=== PATIENT | female | born 1960 | race Caucasian/White ===

== ENCOUNTER 2016-09-03 14:21 | Emergency (ER) | payer MEDICAID ==
[~2016-09-03] VITALS: Ht 162.6 cm; Wt 65.6 kg
[~2016-09-03 14:21] MED LIST: AZIT250T94 PO; D-ME473S18 PO; IBUP-1542 PO
[2016-09-03 14:38] VITALS: Ht 162.6 cm; Wt 65.6 kg
[2016-09-03] MEDS ORDERED: NAPR-260 PO (15:32)
[2016-09-03] MEDS ORDERED: CETI10CA PO (15:32)
[2016-09-03] MEDS ORDERED: D-ME473S18 PO (15:32)
[2016-09-03] MEDS ORDERED: AZIT250T94 PO (15:32)
--- NOTE | 2016-09-03 15:41 | ERD ---
ER Documentation Chief Complaint Date/Time DATE: 09/03/16 TIME: 15:38 Chief Complaint COUGH & SORE THROAT X3 DAYS HPI This a 56-year-old female who presents to the emergency department today complaining of cough, sore throat, body aches and headache for the past 3 days. States she has taken ibuprofen and Robitussin with no improvement in symptoms. States she is primarily concerned about the cough. States that she was seen here in the past and the medication she was given had helped her. ROS All systems reviewed and are negative except as per history of present illness. Medications Home Meds Active Scripts Azithromycin* (Zithromax*) 250 Mg Tablet, 250 MG PO .ClintPATRIXIE DIRECTED, #6 TAB TAKE 500 MG (2 TABS) THE FIRST DAY THEN 250 MG (1 TAB) DAYS 2-5 Prov:NOHEMY ONEILL PA-C 09/03/16 Cetirizine Hcl* (Zyrtec*) 10 Mg Capsule, 10 MG PO DAILY, #14 TAB.CHEW Prov:NOHEMY ONEILL PA-C 09/03/16 Naproxen* (Naprosyn*) 500 Mg Tablet, 500 MG PO BID Y for PAIN AND/OR INFLAMMATION, #30 TAB Prov:NOHEMY ONEILL PA-C 09/03/16 Dextromethorphan Hb-Promethazine Hcl (Promethazine DM Syrup) 473 Ml Syrup, 5 ML PO Q6H Y for COUGH, #4 OZ Prov:NOHEMY ONEILL PA-C 09/03/16 Azithromycin* (Zithromax*) 250 Mg Tablet, 250 MG PO .ZPATRXIIE DIRECTED, #6 TAB TAKE 500 MG (2 TABS) THE FIRST DAY THEN 250 MG (1 TAB) DAYS 2-5 Prov:RANJEET SHORT MD 05/19/16 Ibuprofen* (Motrin*) 600 Mg Tab, 600 MG PO Q6, #30 TAB Prov:RANJEET SHORT MD 05/19/16 Dextromethorphan Hb-Promethazine Hcl (Promethazine DM Syrup) 473 Ml Syrup, 5 ML PO Q6H Y for COUGH, #4 OZ Prov:RANJEET SHORT MD 05/19/16 Azithromycin* (Zithromax*) 250 Mg Tablet, 250 MG PO .ZPACK DIRECTED, #6 TAB TAKE 500 MG (2 TABS) THE FIRST DAY THEN 250 MG (1 TAB) DAYS 2-5 Prov:RANJEET SHORT MD 05/19/16 Allergies Allergies: Coded Allergies: No Known Allergy (Unverified , 05/19/16) PMhx/Soc History of Surgery: No Anesthesia Reaction: No Hx Neurological Disorder: No Hx Respiratory Disorders: No Hx Cardiac Disorders: No Hx Psychiatric Problems: No Hx Miscellaneous Medical Probl: Yes (HTN) Hx Alcohol Use: No Hx Substance Use: No Hx Tobacco Use: No Physical Exam Vitals Vital Signs Date Time Temp Pulse Resp B/P Pulse Ox O2 Delivery O2 Flow Rate FiO2 09/03/16 14:38 99.7 94 16 141/71 99 Physical Exam Const: No acute distress Head: Atraumatic Eyes: Normal Conjunctiva ENT: Ears TMs normal. Nose no drainage. Throat with mild erythema and drainage posterior pharynx. No exudate. Neck: Full range of motion..~ No meningismus. Resp: Clear to auscultation bilaterally. No absent breath sounds. No wheezing. Cardio: Regular rate and rhythm, no murmurs Abd: Soft, non tender, non distended. Normal bowel sounds Skin: No petechiae or rashes Neur: Awake and alert Psych: Normal Mood and Affect Procedures/MDM This a 56-year-old female who presents to the emergency department today with URI and influenza-like symptoms. Patient was seen in the [facility] area of the emergency department. She is afebrile here in the emergency department. Her oxygen saturation is 99%. I do not feel the patient requires laboratory workup or imaging at this time. Patient was seen in May of last year and was treated for bronchitis. Patient indicated that that medication should be given that helped her. Given the patient's age and medical history I will give her a prescription for azithromycin to treat possible bronchitis. I do have low suspicion for pneumonia at this time. Patient may also have flulike symptoms as well, however given the duration of symptoms I do not feel that she would benefit from Tamiflu at this time. Patient was given a prescription for Zyrtec as well as Naprosyn and promethazine. I have low suspicion for strep pharyngitis, peritonsillar abscess, retropharyngeal abscess, otitis media, sinusitis, abscess, meningitis, sepsis, or other acute infectious bacterial process. At this time the patient is stable for discharge and outpatient management. They should follow up with their PCP in the next 1-2. They may return to the emergency department sooner if symptoms persist or worsen. Patient understood and agreed with the plan. Departure Diagnosis: Primary Impression: URI (upper respiratory infection) URI type: unspecified URI Qualified Code: J06.9 - Upper respiratory tract infection, unspecified type Condition: Fair Patient Instructions: Preventing Common Respiratory Infections [facility] Usted se sandoval hecho un examen mdico de control que le indica que no est en mike condicin que requiera tratamiento urgente en el Departamento de Emergencia. Un estudio ms profundo y el tratamiento de mchugh condicin pueden esperar sin ningn riesgo hasta que usted sea atendida/o en el consultorio de mchugh mdico o mike cl mane. Es responsabilidad suya arreglar mike ebenezer para el seguimiento del glenys. MANEJO DE CONDICIONES NO URGENTES EN EL FUTURO 1) Si usted tiene un mdico de atencin primaria: Usted debera llamar a mchugh mdico de atencin primaria antes de venir al departamento de emergencia. Despus de las horas de consultorio, mchugh doctor o mchugh asociado/a est disponible por telfono. El mdico o enfermero de doug en el servicio telefnico puede asesorarle por awilda medio para atender el problema, o glenys contrario se puede programar mike ebenezer. 2) Si usted no tiene un mdico de atencin primaria: Llame al mdico o clnica de referencia que aparece abajo medina las horas de consultorio para hacer mike ebenezer para que le vean. CLINICAS: [facility] [phone] [facility] 325 [phone] [facility] [phone] [facility] [phone] [facility] [phone] [facility] [phone] [address] Additional Instructions: Llame al doctor MAANA y marcellus mike EBENEZER PARA DENTRO DE 1-2 ONTIVEROS.Dgale a la secretaria que nosotros le instruimos hacer esta ebenezer.Avise o llame si mchugh condicin se empeora antes de la ebenezer. Regresa aqui si peor o no mejor. Take antibiotics as prescribed Take promethazine and Zyrtec for cough Take Naprosyn for body ache or headach NOHEMY ONEILL PA-C Sep 03, 2016 15:41
== END 2016-09-03 15:37 | disposition home or self-care (01) ==
LOC: E/R 14:21
DX: J06.9 Acute upper respiratory infection, unspecified (principal); I10 Essential (primary) hypertension
CPT/HCPCS: 99284